=== PATIENT | female | born 1985 | race Caucasian/White ===

== ENCOUNTER 2017-02-17 23:12 | Emergency (ER) | payer MEDICAID ==
[~2017-02-17] VITALS: Ht 167.6 cm; Wt 55.0 kg
[~2017-02-17 23:12] MED LIST: FER325 PO; FOLI-49 PO; PREN1TAB41 PO
[2017-02-17 23:22] VITALS: Ht 167.6 cm; Wt 55.0 kg
[2017-02-18 00:15] LABS: BASOPHILS % 0.2 % (0.0-2.0); EOSINOPHILS # 0.2 10^3/ul (0.0-0.5); EOSINOPHILS % 1.9 % (0.0-7.0); HEMATOCRIT 34.6 % (37.0-47.0); HEMOGLOBIN 11.5 g/dl (12.0-16.0); LYMPHOCYTES # 2.7 10^3/ul (0.8-2.9); LYMPHOCYTES % 33.7 % (15.0-51.0); MEAN CORPUSCULAR HEMOGLOBIN 31.3 pg (29.0-33.0); MEAN CORPUSCULAR HGB CONC 33.2 g/dl (32.0-37.0); MEAN PLATELET VOLUME 9.9 fl (7.4-10.4); MONOCYTE # 0.7 10^3/ul (0.3-0.9); MONOCYTES % 9.1 % (0.0-11.0); NEUTROPHIL # 4.4 10^3/ul (1.6-7.5); NEUTROPHILS % 54.7 % (39.0-77.0); PLATELET COUNT 211 10^3/UL (140-415); RED BLOOD COUNT 3.68 10^6/ul (4.20-5.40); RED CELL DISTRIBUTION WIDTH 13.9 % (11.5-14.5)
[2017-02-18 00:26] LABS: ADD UMIC NO; UR ASCORBIC ACID NEGATIVE (NEGATIVE); UR BILIRUBIN (Dip) NEGATIVE (NEGATIVE); UR BLOOD (Dip) NEGATIVE (NEGATIVE); UR CLARITY CLEAR (CLEAR); UR COLOR YELLOW (YELLOW); UR GLUCOSE (Dip) NEGATIVE (NEGATIVE); UR KETONES (Dip) NEGATIVE (NEGATIVE); UR LEUKOCYTE ESTERASE (Dip) NEGATIVE Leu/ul (NEGATIVE); UR NITRITE (Dip) NEGATIVE (NEGATIVE); UR SPECIFIC GRAVITY (Dip) 1.019 (1.003-1.030); UR TOTAL PROTEIN (Dip) NEGATIVE (NEGATIVE); UR UROBILINOGEN (Dip) NEGATIVE (NEGATIVE)
--- NOTE | 2017-02-18 01:58 | RADRPT ---
PROCEDURE: ULTRASOUND OBSTETRICAL CLINICAL INDICATION: 31-year-old female with vaginal bleeding. TECHNIQUE: Multiple sonographic images of the pelvis were obtained. The images were reviewed on a PACS workstation. COMPARISON: None. FINDINGS: There is a single intrauterine gestation. There is a subchorionic hemorrhage present measuring appro ximately 12 x 8 mm. The mean sac diameter is 4.31 cm. There is a pole present with a crown-rum p length of 3.26 cm. This yields an estimated gestational age of 10 weeks and 1 day. The estimated d ate of delivery is September 15, 2017. Cardiac activity is present at 166 beats per minute. There is no evidence for free fluid. The right ovary was not able to be visualized. The left ovary has a normal echotexture and measures 3.3 x 2.1 x 2.9 cm. There is normal flow to the left ovary. No adnexal ma sses are noted. IMPRESSION: 1. Single viable intrauterine gestation of approximately 10 weeks 1 day with small subchorionic hem orrhage. The estimated date of delivery is September 15, 2017. 2. The right ovary was not visualized. .Walter Jackson MD, MD Date Time Electronically viewed and signed by .Walter Jackson MD, MD on 02/18/2017 01:58 .Cindy/
--- NOTE | 2017-02-18 02:05 | RADRPT ---
PROCEDURE: ULTRASOUND RETROPERITONEUM CLINICAL INDICATION: 31-year-old female with back pain. TECHNIQUE: Multiple sonographic images of the retroperitoneum were obtained. The images were revi ewed on a PACS workstation. COMPARISON: None. FINDINGS: The kidneys is enlarged with thin cortices. The right kidney measures 13.7 x 6.5 x 5.9 cm. There are multiple right renal cysts identified. The largest measures approximately 8.5 x 4.5 cm. The left ki dney measures 12.2 x 5.0 x 5.8 cm. There is a shadowing echogenic focus within the left mid kidney m easuring 5 mm most suggestive of a nonobstructing calculus. There is no evidence for obstructive uro ina. The bladder is decompressed and contains minimal urine and therefore not well evaluated.. I ncidentally noted is an echogenic focus within the dependent portion of the gallbladder measuring 3 mm without definite shadowing presumably representing a polyp. IMPRESSION: 1. Enlarged polycystic right kidney. 2. No sonographic evidence for obstructive uropathy. 3. Decompressed bladder. 4. Incidental gallbladder polyp. .Walter Jackson MD, Date Time Electronically viewed and signed by .Walter Jackson MD, on 02/18/2017 02:05 .M/
[2017-02-18] MEDS ORDERED: TYL500 PO (02:33)
--- NOTE | 2017-02-18 02:43 | ERD ---
ER Documentation Chief Complaint Date/Time DATE: 02/18/17 TIME: 02:38 Chief Complaint 9 weeks with vaginal bleeding x 5 days HPI This is a 31-year-old female that presents to the ER for vaginal bleeding for the last 5 days. Bleeding has been very light and she is only been spotting, however today she bled a little bit more and became more worried. Patient does admit to pelvic pain and lower back pain. A1. Patient denies any urinary frequency or dysuria.Patient has not had any fevers or chills. ROS 12 point review of systems was done, all negative except per HPI. Medications Home Meds Active Scripts Acetaminophen* (Tylenol*) 500 Mg Tab, 500 MG PO Q4H Y for MILD PAIN LEVEL 1-3 for 3 Days, TAB Prov:TIERRA HOFFMAN 02/18/17 Reported Medications Folic Acid* (Folic Acid*) 1 Mg Tablet, 1 MG PO DAILY, TAB 12/09/13 Vit No.73/Iron/Fa (VOL-HALIE TABLET) 1 Each Tablet, 1 EACH PO DAILY 12/09/13 Ferrous Sulfate* (Ferrous Sulfate*) 325 Mg Tabec, 325 MG PO BID, TAB 12/09/13 Allergies Allergies: Coded Allergies: No Known Drug Allergy (Verified Allergy, Unknown, 12/24/12) PMhx/Soc Medical and Surgical Hx: pt denies Medical Hx, pt denies Surgical Hx Hx Alcohol Use: No Hx Substance Use: No Hx Tobacco Use: No Smoking Status: Never smoker Physical Exam Vitals Vital Signs Date Time Temp Pulse Resp B/P Pulse Ox O2 Delivery O2 Flow Rate FiO2 02/17/17 23:22 98.9 64 16 103/64 99 Physical Exam GENERAL: The patient is well developed and appropriate for usual state of health , in no apparent distress. HEENT: Atraumatic. CHEST: Clear to auscultation bilaterally. There are no rales, wheezes or rhonchi. HEART: Regular rate and rhythm. No murmurs, clicks, rubs or gallops. ABDOMEN: Soft, nontender and nondistended. Good bowel sounds. No rebound or guarding. No gross peritonitis. No gross organomegaly or masses. No Carney sign or McBurney point tenderness. BACK: No midline or flank tenderness. NEURO: Alert and oriented Result Diagram: 02/18/17 0001 Results 24 hrs Laboratory Tests Test 02/17/17 23:57 02/18/17 00:01 Urine Color YELLOW Urine Clarity CLEAR Urine pH 5.0 Urine Specific [place] 1.019 Urine Ketones NEGATIVEmg/dL Urine Nitrite NEGATIVEmg/dL Urine Bilirubin NEGATIVEmg/dL Urine Urobilinogen NEGATIVEmg/dL Urine Leukocyte Esterase NEGATIVELeu/ul Urine Hemoglobin NEGATIVEmg/dL Urine Glucose NEGATIVEmg/dL Urine Total Protein NEGATIVEmg/dl White Blood Count 8.010^3/ul Red Blood Count 3.6810^6/ul Hemoglobin 11.5g/dl Hematocrit 34.6% Mean Corpuscular Volume 94.0fl Mean Corpuscular Hemoglobin 31.3pg Mean Corpuscular Hemoglobin Concent 33.2g/dl Red Cell Distribution Width 13.9% Platelet Count 97934^3/UL Mean Platelet Volume 9.9fl Neutrophils % 54.7% Lymphocytes % 33.7% Monocytes % 9.1% Eosinophils % 1.9% Basophils % 0.2% Nucleated Red Blood Cells % 0.0/100WBC Neutrophils # 4.410^3/ul Lymphocytes # 2.710^3/ul Monocytes # 0.710^3/ul Eosinophils # 0.210^3/ul Basophils # 0.010^3/ul Nucleated Red Blood Cells # 0.010^3/ul Beta HCG, Quantitative 051090.0mIU/ml [place] [address] Radiology Main Line: [phone] DIAGNOSTIC IMAGING REPORT Patient: ESTHER COLEMAN : 1985 Age: 31 Sex: F MR #: [id number] DOS: 02/18/17 2349 Ordering MD: TIERRA HOFFMAN PA-C Location: [facility] Room/Bed: PROCEDURE: ULTRASOUND OBSTETRICAL CLINICAL INDICATION: 31-year-old female with vaginal bleeding. TECHNIQUE: Multiple sonographic images of the pelvis were obtained. The images were reviewed on a PACS workstation. COMPARISON: None. FINDINGS: There is a single intrauterine gestation. There is a subchorionic hemorrhage present measuring approximately 12 x 8 mm. The mean sac diameter is 4.31 cm. There is a pole present with a crown-rump length of 3.26 cm. This yields an estimated gestational age of 10 weeks and 1 day. The estimated date of delivery is September 15, 2017. Cardiac activity is present at 166 beats per minute. There is no evidence for free fluid. The right ovary was not able to be visualized. The left ovary has a normal echotexture and measures 3.3 x 2.1 x 2.9 cm. There is normal flow to the left ovary. No adnexal masses are noted. IMPRESSION: 1. Single viable intrauterine gestation of approximately 10 weeks 1 day with small subchorionic hemorrhage. The estimated date of delivery is September 15, 2017. 2. The right ovary was not visualized. .Walter Jackson MD, Date Time Electronically viewed and signed by .Walter Jackson MD, on 02/18/2017 01:58 .M/ CC: TIERRA HOFFMAN [place] [address] Radiology Main Line: [phone] DIAGNOSTIC IMAGING REPORT Patient: ESTHER COLEMAN : 1985 Age: 31 Sex: F MR #: [id number] DOS: 02/18/17 0000 Ordering MD: TIERRA HOFFMAN PA-C Location: [facility] Room/Bed: PROCEDURE: ULTRASOUND RETROPERITONEUM CLINICAL INDICATION: 31-year-old female with back pain. TECHNIQUE: Multiple sonographic images of the retroperitoneum were obtained. The images were reviewed on a PACS workstation. COMPARISON: None. FINDINGS: The kidneys is enlarged with thin cortices. The right kidney measures 13.7 x 6.5 x 5.9 cm. There are multiple right renal cysts identified. The largest measures approximately 8.5 x 4.5 cm. The left kidney measures 12.2 x 5.0 x 5.8 cm. There is a shadowing echogenic focus within the left mid kidney measuring 5 mm most suggestive of a nonobstructing calculus. There is no evidence for obstructive uropathy. The bladder is decompressed and contains minimal urine and therefore not well evaluated.. Incidentally noted is an echogenic focus within the dependent portion of the gallbladder measuring 3 mm without definite shadowing presumably representing a polyp. IMPRESSION: 1. Enlarged polycystic right kidney. 2. No sonographic evidence for obstructive uropathy. 3. Decompressed bladder. 4. Incidental gallbladder polyp. .Walter Jackson MD, MD Date Time Electronically viewed and signed by .Walter Jackson MD, MD on 02/18/2017 02:05 .M/ CC: TIERRA HOFFMAN Procedures/MDM Differential diagnosis: Threatened , missed , incomplete , ectopic , molar , UTI, pyelonephritis. This is a 31 -year-old female presents to the ER with vaginal bleeding, patient does have a subchorionic hemorrhage which may be the cause of her leg bleeding. In regards to patient's the is intrauterine, suspicion for ectopic is low. Patient's quantitative hCG is within normal limits suspicion for molar is low. Patient unfortunately does appear to have polycystic kidney disease, I discussed this finding with my supervising physician Dr. Upton, and patient is stable to follow-up with her primary care doctor. patient will be sent home with Tylenol for pain. She is to follow-up with her OB within 48 hours or return to ER sooner if symptoms worsen. Departure Diagnosis: Primary Impression: Kidney cysts Additional Impression: Vaginal bleeding in patient at less than 20 weeks ges... Condition: Stable Patient Instructions: Possible Miscarriage (Threatened ) Additional Instructions: Call your primary care doctor TOMORROW for an appointment during the next 1-2 days.See the doctor sooner or return here if your condition worsens before your appointment time. PLEASE SEE YOUR OB SOON POSSIBLE. PLEASE MENTION THAT YOU NEED TO SEE A KIDNEY SPECIALIST. TIERRA HOFFMAN Feb 18, 2017 02:43
== END 2017-02-18 02:44 | disposition home or self-care (01) ==
LOC: FTE 23:12
DX: O26.833 Pregnancy related renal disease, third trimester (principal); N28.1 Cyst of kidney, acquired; R10.2 Pelvic and perineal pain; Z3A.10 10 weeks gestation of pregnancy
CPT/HCPCS: 36415; 76775; 76801; 81003; 84702; 85025; 86900; 86901; Z7502